=== PATIENT | female | born 1995 | race Caucasian/White ===

== ENCOUNTER 2017-11-19 14:36 | Emergency (ER) | payer SELFPAY ==
[2017-11-19 15:18] LABS: #Basophils 0.1 thou/uL (0.0-0.2); #Eosinphils 0.1 thou/uL (0.0-0.7); #Lymphocytes 2.2 thou/uL (1.20-3.40); #Monocytes 0.4 thou/uL (0.11-0.59); #Neutrophils 4.8 thou/uL (1.40-6.50); %Basophils 1.1 % (0.0-1.0); %Eosinophils 1.4 % (0.0-10.0); %Lymphocytes 29.2 % (21.0-51.0); %Monocytes 5.6 % (0.0-10.0); %Neutrophils 62.6 % (42.0-75.0); Hemoglobin 12.9 g/dL (12.0-16.0); Mean Corpuscular HGB CONC 33.5 g/dL (32.0-36.0); Mean Corpuscular Hemoglobin 31.5 pg (27.0-31.0); Mean Platelet Volume 9.1 fL (7.4-10.4); Platelet Count 195 thou/uL (130-400); RBC Distribution Width 10.9 % (11.5-14.5); Red Blood Cell (RBC) Count 4.08 mill/uL (4.20-5.40); White Blood Cell (WBC) Count 7.6 thou/uL (4.8-10.8)
--- NOTE | 2017-11-19 17:03 | ULT ---
EXAM: PELVIC ULTRASOUND 11/19/17 HISTORY: Vaginal bleeding with cramping. Positive serum beta HCG of 2160. COMPARISON: None. TECHNIQUE: Transabdominal and endovaginal imaging of the pelvis is performed. Ovaries interrogated with atkins sca le, color flow, doppler imaging with spectral waveform analysis. FINDINGS: The uterus is identified, without myometrial masses. The uterus measures 3.0 x 4.0 x 6.8 cm. Endomet rium has a homogeneous echotexture, measuring 1 cm. No evidence of a gestational sac, yolk sac or fet al pole. Right ovary has a normal echotexture measuring 2.4 x 1.6 x 1.1 cm. Left ovary has a normal echotexture measuring 2.5 x 1.7 x 2.0 cm. A small follicle measuring 0.7 cm i s noted. There is a small amount of free fluid in the cul-de-sac. OVARIAN DOPPLER: Vascular flow to the left and right ovary. IMPRESSION: No sonographic evidence of intrauterine gestation. Differential considerations include early intraute rine versus missed spontaneous versus sonographically occult ectopic . Fo llowup ultrasound and serial beta HCGs are recommended. POS: NATYT
[2017-11-19 17:09] LABS: Bilirubin Negative (Negative); Blood, Urine Moderate (Negative); Clarity CLEAR (Clear); Glucose, Urine (Dipstick) Negative (Negative); Leukocyte Negative (Negative); Nitrite Negative (Negative); Protein, Urine (Dipstick) Negative (Neg-Trace); Specific Gravity, Urine 1.008 (1.002-1.036); Urobilinogen 0.2 mg/dL (0.2-1.0)
[2017-11-19 17:10] LABS: Bacteria/HPF None Seen HPF (None Seen); Hyaline Casts/LPF 0-3 HYALINE CAST LPF (0-3 Hyaline); RBC/HPF 0-3 HPF (0-3); Squamous Epithelial 0-3 HPF (0-3); WBC/HPF None Seen HPF (0-3)
[2017-11-20 23:17] LABS: Chlamydia by PCR Not Detected (NotDetected); GC by PCR Not Detected (NotDetected)
== END 2017-11-19 18:23 | disposition home or self-care (01) ==
LOC: ERS 14:36
DX: O20.0 Threatened abortion (principal); O99.331 Smoking (tobacco) complicating pregnancy, first trimester; F17.210 Nicotine dependence, cigarettes, uncomplicated; Z3A.01 Less than 8 weeks gestation of pregnancy
CPT/HCPCS: 36415; 76856; 81003; 81015; 84702; 85025; 86900; 86901; 87480; 87491; 87510; 87591; 87660; 90384; 96372; 99406

== ENCOUNTER 2017-11-21 09:00 | Emergency (ER) | payer SELFPAY | END 2017-11-21 10:44 | disposition home or self-care (01) | LOC: ERS 09:00 | DX: O20.0 Threatened abortion (principal); O99.331 Smoking (tobacco) complicating pregnancy, first trimester; F17.210 Nicotine dependence, cigarettes, uncomplicated; Z3A.01 Less than 8 weeks gestation of pregnancy | CPT/HCPCS: 36415; 84702; 99284 ==